=== PATIENT | female | born 1950 | race Hispanic/Latino ===

== ENCOUNTER 2022-03-28 03:46 | Inpatient (IN) | payer MEDICARE, OTHER ==
[~2022-03-28] VITALS: Ht 157.5 cm; Wt 68.0 kg
[2022-03-28 04:19] LABS: BASOPHILS % 0.3 % (0.0-1.0); EOSINOPHILS # (AUTO) 0.2 (0.0-0.4); EOSINOPHILS % 1.6 % (0.0-6.0); HEMATOCRIT 31.7 % (34.2-44.1); HEMOGLOBIN 10.1 g/dL (12.0-16.0); LYMPHOCYTES % 18.9 % (18.0-39.1); MEAN CORPUSCULAR HEMOGLOBIN 29.9 pg (28-32); MEAN CORPUSCULAR HGB CONC 31.9 g/dL (31-35); MEAN CORPUSCULAR VOLUME 93.8 fL (81-99); MONOCYTES # (AUTO) 0.7 (0.2-0.8); MONOCYTES % 6.2 % (4.4-11.3); NEUTROPHILS # (AUTO) 7.6 (2.1-6.9); NEUTROPHILS % 71.8 % (38.7-80.0); PLATELET COUNT 179 x10e3/uL (140-360); RED BLOOD COUNT 3.38 x10e6/uL (3.6-5.1); RED CELL DISTRIBUTION WIDTH 14.3 % (11.7-14.4)
[2022-03-28 04:38] LABS: ALBUMIN 2.9 g/dL (3.5-5.0); ALBUMIN/GLOBULIN RATIO 0.5 (0.8-2.0); ANION GAP 22.2 mmol/L (8-16); CALCIUM 8.9 mg/dL (8.4-10.2); CREATININE, SERUM 5.84 mg/dL (0.57-1.11); POTASSIUM 4.2 mmol/L (3.5-5.1)
[2022-03-28] MEDS ORDERED: SODIUM CHLORIDE FLUSH 10 ML SYR INJ PRN (05:45)
[2022-03-28] MEDS ORDERED: LEVOFLOXACIN 750MG/D5W 150ML 150 ML IV ONE (06:30)
[2022-03-28] MEDS ORDERED: BENZONATATE 100 MG CAP PO PRN (08:30)
[2022-03-28] MEDS ORDERED: ALBUTEROL/IPRATROPIUM 3 ML NEB NEB PRN (08:30)
[2022-03-28] MEDS: METHYLPREDNISOLONE SOD SUCC 40 MG/ML VIAL 1ML IV SCH ×2 (09:10→21:38)
[2022-03-28] MEDS: BENZONATATE 100 MG CAP PO SCH ×3 (09:10→21:38)
[2022-03-28] MEDS: ALBUTEROL/IPRATROPIUM 3 ML NEB NEB SCH ×2 (10:20→19:40)
[2022-03-28 12:15] VITALS: BP 157/71
[2022-03-28 12:20] VITALS: BP 157/71
[2022-03-28] MEDS ORDERED: SODIUM CHLORIDE 0.9% 1000ML 0 ML ONE (14:15)
[2022-03-28 16:03] VITALS: BP 153/80
[2022-03-28 20:00] VITALS: BP 171/69
[2022-03-28 21:36] VITALS: BP 171/69
[2022-03-29] VITALS (7 sets, daily range): BP systolic 104–181; BP diastolic 66–100
[2022-03-29] MEDS: ALBUTEROL/IPRATROPIUM 3 ML NEB NEB SCH ×4 (00:40→19:00)
[2022-03-29] MEDS: ACETAMINOPHEN 325 MG TAB PO PRN ×2 (02:47→11:36)
[2022-03-29 05:33] LABS: BASOPHILS # (AUTO) 0.1 (0.0-0.1); BASOPHILS % 0.4 % (0.0-1.0); HEMATOCRIT 33.2 % (34.2-44.1); HEMOGLOBIN 10.3 g/dL (12.0-16.0); LYMPHOCYTES # (AUTO) 0.5 (1.0-3.2); LYMPHOCYTES % 3.9 % (18.0-39.1); MEAN CORPUSCULAR HEMOGLOBIN 29.9 pg (28-32); MEAN CORPUSCULAR VOLUME 96.5 fL (81-99); MONOCYTES # (AUTO) 0.3 (0.2-0.8); MONOCYTES % 1.9 % (4.4-11.3); NEUTROPHILS # (AUTO) 11.9 (2.1-6.9); NEUTROPHILS % 91.7 % (38.7-80.0); PLATELET COUNT 243 x10e3/uL (140-360); RED BLOOD COUNT 3.44 x10e6/uL (3.6-5.1); RED CELL DISTRIBUTION WIDTH 14.2 % (11.7-14.4)
[2022-03-29 06:12] LABS: ALBUMIN/GLOBULIN RATIO 0.6 (0.8-2.0); ANION GAP 19.5 mmol/L (8-16); CALCIUM 9.5 mg/dL (8.4-10.2); CREATININE, SERUM 4.13 mg/dL (0.57-1.11); POTASSIUM 4.5 mmol/L (3.5-5.1)
[2022-03-29] MEDS: MAGNESIUM HYDROXIDE 30 ML UDC PO PRN (09:42)
[2022-03-29] MEDS ORDERED: SODIUM CHLORIDE 0.9% 250ML 250 ML ONE (09:53)
[2022-03-29] MEDS: METHYLPREDNISOLONE SOD SUCC 40 MG/ML VIAL 1ML IV SCH ×2 (10:07→21:00)
[2022-03-29] MEDS: BENZONATATE 100 MG CAP PO SCH ×3 (10:07→21:00)
[2022-03-29] MEDS: ONDANSETRON HCL INJ 2MG/ML 2ML 2 MG/ML VIAL IV PRN ×2 (10:30→18:25)
[2022-03-29] MEDS: METOCLOPRAMIDE HCL 10 MG/2ML VIAL IV PRN (12:57)
[2022-03-29] MEDS ORDERED: Morphine 2mg Syringe 2 MG/ML SYR IV ONE (14:45)
[2022-03-29] MEDS ORDERED: MAGNESIUM/ALUMINUM/SIMETHICONE 30 ML UDC PO ONE (14:45)
[2022-03-29] MEDS: FAMOTIDINE 20 MG TAB PO SCH (16:46)
[2022-03-29] MEDS: HYDROMORPHONE 1MG/1ML INJ IV PRN (18:25)
[2022-03-30] VITALS (8 sets, daily range): BP systolic 114–202; BP diastolic 69–100
[2022-03-30] MEDS: ONDANSETRON HCL INJ 2MG/ML 2ML 2 MG/ML VIAL IV PRN (00:41)
[2022-03-30] MEDS: HYDROMORPHONE 1MG/1ML INJ IV PRN ×2 (00:41→07:44)
[2022-03-30] MEDS: ALBUTEROL/IPRATROPIUM 3 ML NEB NEB SCH ×4 (01:00→19:22)
[2022-03-30] MEDS ORDERED: NIFEDIPINE CR 30 MG TAB PO ONE (07:30)
[2022-03-30] MEDS: METOCLOPRAMIDE HCL 10 MG/2ML VIAL IV PRN (07:44)
[2022-03-30] MEDS: FAMOTIDINE 20 MG TAB PO SCH (08:39)
[2022-03-30] MEDS: BENZONATATE 100 MG CAP PO SCH ×3 (08:40→20:36)
[2022-03-30] MEDS: METHYLPREDNISOLONE SOD SUCC 40 MG/ML VIAL 1ML IV SCH ×2 (08:40→20:36)
[2022-03-30] MEDS ORDERED: LEVOFLOXACIN 500MG/D5W 100ML 100 ML IV SCH (09:00)
[2022-03-30] MEDS ORDERED: Morphine 4mg INJECTION 4 MG/ML INJ IV PRN (09:30)
[2022-03-30] MEDS ORDERED: PROMETHAZINE 12.5MG/ NACL 0.9% 12.5 MG/50 ML BAG IV ONE (10:00)
[2022-03-30] MEDS: METOPROLOL TARTRATE 50 MG TAB PO SCH ×2 (11:10→17:39)
[2022-03-30] MEDS: FAMOTIDINE 20 MG/2 ML VIAL IV SCH ×2 (11:10→17:38)
[2022-03-30] MEDS: NIFEDIPINE CR 30 MG TAB PO SCH ×2 (11:10→17:39)
[2022-03-30] MEDS: METOCLOPRAMIDE HCL 10 MG/2ML VIAL IV SCH ×3 (11:19→20:36)
[2022-03-30] MEDS ORDERED: PROMETHAZINE 12.5MG/ NACL 0.9% 12.5 MG/50 ML BAG IV PRN (14:00)
[2022-03-31] VITALS (8 sets, daily range): BP systolic 139–188; BP diastolic 73–125
[2022-03-31] MEDS: HYDRALAZINE HCL 20 MG/ML VIAL IV PRN (00:58)
[2022-03-31] MEDS: ALBUTEROL/IPRATROPIUM 3 ML NEB NEB SCH ×4 (01:30→19:17)
[2022-03-31] MEDS: METOCLOPRAMIDE HCL 10 MG/2ML VIAL IV SCH ×4 (07:30→20:53)
[2022-03-31] MEDS ORDERED: SODIUM CHLORIDE 0.9% 1000ML 2,000 ML ONE (08:19)
[2022-03-31 09:03] LABS: ANION GAP 24.7 mmol/L (8-16); CALCIUM 9.2 mg/dL (8.4-10.2); CREATININE, SERUM 7.82 mg/dL (0.57-1.11); POTASSIUM 4.7 mmol/L (3.5-5.1)
[2022-03-31] MEDS ORDERED: KETOROLAC TROMETHAMINE 30 MG/ML VIAL IV STA (11:40)
[2022-03-31] MEDS: FAMOTIDINE 20 MG/2 ML VIAL IV SCH ×2 (13:19→17:00)
[2022-03-31] MEDS: BENZONATATE 100 MG CAP PO SCH ×3 (13:19→20:53)
[2022-03-31] MEDS: MAGNESIUM HYDROXIDE 30 ML UDC PO PRN (13:20)
[2022-03-31] MEDS: NIFEDIPINE CR 30 MG TAB PO SCH ×2 (13:20→17:00)
[2022-03-31] MEDS: METOPROLOL TARTRATE 50 MG TAB PO SCH ×2 (13:20→17:00)
[2022-03-31] MEDS ORDERED: SODIUM CHLORIDE 0.9% 250ML 250 ML ONE (13:25)
[2022-04-01] VITALS (7 sets, daily range): BP systolic 127–159; BP diastolic 68–90
[2022-04-01] MEDS: ALBUTEROL/IPRATROPIUM 3 ML NEB NEB SCH ×4 (01:00→20:55)
[2022-04-01] MEDS ORDERED: METHYLPREDNISOLONE SOD SUCC 40 MG/ML VIAL 1ML IV SCH (07:30)
[2022-04-01] MEDS ORDERED: MAGNESIUM HYDROXIDE 30 ML UDC PO ONE (10:00)
[2022-04-01] MEDS ORDERED: PANTOPRAZOLE SOD 40 MG TABEC PO ONE (10:00)
[2022-04-01] MEDS: BENZONATATE 100 MG CAP PO SCH ×3 (10:26→21:21)
[2022-04-01] MEDS: NIFEDIPINE CR 30 MG TAB PO SCH ×2 (10:48→17:19)
[2022-04-01] MEDS: METOPROLOL TARTRATE 50 MG TAB PO SCH ×2 (10:48→17:19)
[2022-04-01] MEDS: LACTULOSE SYRUP 20 GM/30 ML UDC PO PRN (15:16)
[2022-04-01] MEDS: HYDROCODONE/APAP 5MG-325MG TAB PO PRN (20:30)
[2022-04-01] MEDS: QUETIAPINE FUMARATE 25 MG TAB PO PRN (22:34)
[2022-04-02] VITALS (7 sets, daily range): BP systolic 111–152; BP diastolic 57–70
[2022-04-02] MEDS: ALBUTEROL/IPRATROPIUM 3 ML NEB NEB SCH ×4 (02:25→19:00)
[2022-04-02 05:01] LABS: BASOPHILS # (AUTO) 0.1 (0.0-0.1); BASOPHILS % 0.3 % (0.0-1.0); EOSINOPHILS # (AUTO) 0.1 (0.0-0.4); EOSINOPHILS % 0.3 % (0.0-6.0); HEMATOCRIT 29.7 % (34.2-44.1); HEMOGLOBIN 9.2 g/dL (12.0-16.0); LYMPHOCYTES # (AUTO) 1.1 (1.0-3.2); LYMPHOCYTES % 4.4 % (18.0-39.1); MEAN CORPUSCULAR VOLUME 96.7 fL (81-99); MONOCYTES # (AUTO) 0.6 (0.2-0.8); MONOCYTES % 2.4 % (4.4-11.3); NEUTROPHILS # (AUTO) 22.1 (2.1-6.9); NEUTROPHILS % 91.5 % (38.7-80.0); PLATELET COUNT 166 x10e3/uL (140-360); RED BLOOD COUNT 3.07 x10e6/uL (3.6-5.1); RED CELL DISTRIBUTION WIDTH 14.8 % (11.7-14.4)
[2022-04-02 05:29] LABS: ANION GAP 18.7 mmol/L (8-16); CALCIUM 8.6 mg/dL (8.4-10.2); CREATININE, SERUM 6.14 mg/dL (0.57-1.11); POTASSIUM 4.7 mmol/L (3.5-5.1)
[2022-04-02] MEDS: NIFEDIPINE CR 30 MG TAB PO SCH ×2 (09:00→17:00)
[2022-04-02] MEDS: METOPROLOL TARTRATE 50 MG TAB PO SCH ×2 (09:00→17:00)
[2022-04-02] MEDS: BENZONATATE 100 MG CAP PO SCH ×3 (09:07→20:17)
[2022-04-02] MEDS: PANTOPRAZOLE SOD 40 MG TABEC PO SCH (09:07)
[2022-04-02] MEDS ORDERED: GENTAMICIN 120MG/NS 100ML 100 ML IV ONE (13:30)
[2022-04-02] MEDS ORDERED: SODIUM CHLORIDE 0.9% 250ML 250 ML ONE (14:40)
[2022-04-02] MEDS ORDERED: SODIUM CHLORIDE 0.9% 1000ML 1,000 ML ONE (15:43)
[2022-04-02] MEDS: HYDROCODONE/APAP 5MG-325MG TAB PO PRN (18:28)
[2022-04-02] MEDS: QUETIAPINE FUMARATE 25 MG TAB PO PRN (20:19)
[2022-04-03] VITALS (8 sets, daily range): BP systolic 109–142; BP diastolic 58–92
[2022-04-03] MEDS: ALBUTEROL/IPRATROPIUM 3 ML NEB NEB SCH ×4 (01:40→19:32)
[2022-04-03 06:39] LABS: ALBUMIN 2.7 g/dL (3.5-5.0); ALBUMIN/GLOBULIN RATIO 0.7 (0.8-2.0); ANION GAP 16.4 mmol/L (8-16); CALCIUM 8.4 mg/dL (8.4-10.2); CREATININE, SERUM 3.66 mg/dL (0.57-1.11); POTASSIUM 4.4 mmol/L (3.5-5.1)
[2022-04-03] MEDS: BENZONATATE 100 MG CAP PO SCH ×3 (08:17→20:29)
[2022-04-03] MEDS: PANTOPRAZOLE SOD 40 MG TABEC PO SCH (08:17)
[2022-04-03] MEDS: METOPROLOL TARTRATE 50 MG TAB PO SCH ×2 (08:17→17:00)
[2022-04-03] MEDS: NIFEDIPINE CR 30 MG TAB PO SCH ×2 (08:18→17:00)
[2022-04-03] MEDS: HYDROCODONE/APAP 5MG-325MG TAB PO PRN (14:16)
[2022-04-04] VITALS: BP 139/68
[2022-04-04] MEDS: ALBUTEROL/IPRATROPIUM 3 ML NEB NEB SCH ×4 (00:40→19:40)
[2022-04-04 05:50] LABS: BASOPHILS % 0.4 % (0.0-1.0); EOSINOPHILS # (AUTO) 0.3 (0.0-0.4); EOSINOPHILS % 2.8 % (0.0-6.0); HEMATOCRIT 26.4 % (34.2-44.1); LYMPHOCYTES % 8.8 % (18.0-39.1); MEAN CORPUSCULAR HEMOGLOBIN 30.1 pg (28-32); MEAN CORPUSCULAR HGB CONC 30.3 g/dL (31-35); MEAN CORPUSCULAR VOLUME 99.2 fL (81-99); MONOCYTES # (AUTO) 0.7 (0.2-0.8); MONOCYTES % 5.8 % (4.4-11.3); NEUTROPHILS # (AUTO) 9.2 (2.1-6.9); NEUTROPHILS % 80.9 % (38.7-80.0); PLATELET COUNT 217 x10e3/uL (140-360); RED BLOOD COUNT 2.66 x10e6/uL (3.6-5.1)
[2022-04-04 06:20] LABS: CALCIUM 8.3 mg/dL (8.4-10.2); CREATININE, SERUM 5.27 mg/dL (0.57-1.11)
[2022-04-04] MEDS: PANTOPRAZOLE SOD 40 MG TABEC PO SCH (07:30)
[2022-04-04 07:45] VITALS: BP 150/119
[2022-04-04 07:51] VITALS: BP 150/119
[2022-04-04] MEDS ORDERED: SODIUM CHLORIDE 0.9% 1000ML 2,000 ML ONE (08:11)
[2022-04-04] MEDS: NIFEDIPINE CR 30 MG TAB PO SCH ×2 (09:00→16:33)
[2022-04-04] MEDS: METOPROLOL TARTRATE 50 MG TAB PO SCH ×2 (09:00→16:33)
[2022-04-04] MEDS: BENZONATATE 100 MG CAP PO SCH ×3 (09:00→21:01)
[2022-04-04] MEDS: ACETAMINOPHEN 325 MG TAB PO PRN (11:50)
[2022-04-04 15:45] VITALS: BP 154/72
[2022-04-04 20:00] VITALS: BP 146/70
[2022-04-04 22:08] VITALS: BP 146/70
[2022-04-05] VITALS (8 sets, daily range): BP systolic 110–155; BP diastolic 47–73
[2022-04-05] MEDS: ALBUTEROL/IPRATROPIUM 3 ML NEB NEB SCH ×4 (01:40→20:05)
[2022-04-05] MEDS: NIFEDIPINE CR 30 MG TAB PO SCH ×2 (08:37→16:17)
[2022-04-05] MEDS: METOPROLOL TARTRATE 50 MG TAB PO SCH ×2 (08:37→16:17)
[2022-04-05] MEDS: PANTOPRAZOLE SOD 40 MG TABEC PO SCH (08:37)
[2022-04-05] MEDS: BENZONATATE 100 MG CAP PO SCH ×3 (08:37→20:29)
[2022-04-05] MEDS: HYDROCODONE/APAP 5MG-325MG TAB PO PRN ×3 (08:41→20:29)
[2022-04-06] VITALS (8 sets, daily range): BP systolic 115–148; BP diastolic 41–65
[2022-04-06] MEDS: ALBUTEROL/IPRATROPIUM 3 ML NEB NEB SCH ×4 (02:00→19:18)
[2022-04-06] MEDS: PANTOPRAZOLE SOD 40 MG TABEC PO SCH (08:25)
[2022-04-06] MEDS: BENZONATATE 100 MG CAP PO SCH ×3 (08:25→21:02)
[2022-04-06] MEDS: HYDROCODONE/APAP 5MG-325MG TAB PO PRN (08:25)
[2022-04-06] MEDS: NIFEDIPINE CR 30 MG TAB PO SCH ×2 (08:25→15:39)
[2022-04-06] MEDS: METOPROLOL TARTRATE 50 MG TAB PO SCH ×2 (08:26→15:39)
[2022-04-06] MEDS: MAGNESIUM HYDROXIDE 30 ML UDC PO PRN (11:22)
[2022-04-06] MEDS: ONDANSETRON HCL 4 MG ORAL DISINTEGRATING TAB PO PRN (11:40)
[2022-04-06] MEDS: ACETAMINOPHEN 325 MG TAB PO PRN ×2 (13:13→21:03)
[2022-04-06] MEDS: LACTULOSE SYRUP 20 GM/30 ML UDC PO PRN (13:14)
[2022-04-06] MEDS: POLYETHYLENE GLYCOL 3350 17 GM PACK PO PRN (15:40)
[2022-04-07] VITALS (7 sets, daily range): BP systolic 119–150; BP diastolic 52–76
[2022-04-07] MEDS: ALBUTEROL/IPRATROPIUM 3 ML NEB NEB SCH ×4 (07:00→19:35)
[2022-04-07] MEDS: PANTOPRAZOLE SOD 40 MG TABEC PO SCH (07:30)
[2022-04-07 08:46] LABS: CALCIUM 8.2 mg/dL (8.4-10.2); CREATININE, SERUM 6.92 mg/dL (0.57-1.11)
[2022-04-07] MEDS: METOPROLOL TARTRATE 50 MG TAB PO SCH ×3 (09:00→17:00)
[2022-04-07] MEDS: NIFEDIPINE CR 30 MG TAB PO SCH ×3 (09:00→17:00)
[2022-04-07] MEDS: BENZONATATE 100 MG CAP PO SCH ×3 (09:00→20:08)
[2022-04-07] MEDS ORDERED: EPINEPHRINE HCL 1:1000 1ML 1 MG/ML AMP ONE ×2 (09:09→13:00)
[2022-04-07] MEDS ORDERED: LIDOCAINE HCL 4% 50 ML BTL ONE (09:09)
[2022-04-07] MEDS ORDERED: SODIUM CHLORIDE 0.9% 250ML 250 ML IV ONE (09:15)
[2022-04-07 12:11] LABS: BASOPHILS % 0.4 % (0.0-1.0); EOSINOPHILS # (AUTO) 0.2 (0.0-0.4); EOSINOPHILS % 2.2 % (0.0-6.0); LYMPHOCYTES # (AUTO) 1.2 (1.0-3.2); MEAN CORPUSCULAR HEMOGLOBIN 30.8 pg (28-32); MEAN CORPUSCULAR HGB CONC 30.1 g/dL (31-35); MEAN CORPUSCULAR VOLUME 102.3 fL (81-99); MONOCYTES # (AUTO) 0.8 (0.2-0.8); MONOCYTES % 7.6 % (4.4-11.3); NEUTROPHILS # (AUTO) 7.8 (2.1-6.9); NEUTROPHILS % 76.5 % (38.7-80.0); PLATELET COUNT 266 x10e3/uL (140-360); RED BLOOD COUNT 2.21 x10e6/uL (3.6-5.1); RED CELL DISTRIBUTION WIDTH 15.9 % (11.7-14.4)
[2022-04-07 12:16] LABS: HEMATOCRIT 22.6 % (34.2-44.1); HEMOGLOBIN 6.8 g/dL (12.0-16.0)
[2022-04-07 12:17] LABS: BODY FLUID APPEARANCE SL.CLOUDY; BODY FLUID COLOR COLORLESS; RBC,BODY FLUID 0 cells/uL; WBC,BODY FLUID 115 cells/uL
[2022-04-07 12:22] LABS: BODY FLUID TYPE PERITONEAL
[2022-04-07 12:37] LABS: EOSINOPHILS,BODY FLUID 1 %; LYMPHOCYTES,BODY FLUID 4 %; MONO/MACROPHG,BODY FLUID 2 %; NEUTROPHILS,BODY FLUID 93 %
[2022-04-07] MEDS ORDERED: EPOETIN ALFA-EPBX 10,000 UNIT/ML VIAL SC ONE (12:45)
[2022-04-07] MEDS ORDERED: PROPOFOL IV EMULSION 10 MG/ML 20 ML VIAL ONE (13:00)
[2022-04-07] MEDS ORDERED: LIDOCAINE HCL 2% LOCAL INJ 5 ML SDV VIAL INJ ONE (13:00)
[2022-04-07] MEDS ORDERED: POVIDONE IODINE 0.05% 0.05 % ML PO ONE (13:00)
[2022-04-07] MEDS ORDERED: ONDANSETRON HCL INJ 2MG/ML 2ML 2 MG/ML VIAL ONE (13:00)
[2022-04-07] MEDS ORDERED: MIDAZOLAM HCL 2 MG/2 ML VIAL ONE (13:12)
[2022-04-07] MEDS ORDERED: FENTANYL CITRATE/PF 100MCG/2 ML INJ ONE (13:12)
[2022-04-07] MEDS ORDERED: SODIUM CHLORIDE 0.9% 1000ML 2,000 ML ONE (13:48)
[2022-04-07] MEDS: ACETAMINOPHEN 325 MG TAB PO PRN (16:55)
[2022-04-07] MEDS: IRON SUCROSE 100 MG in SODIUM CHLORIDE 0.9% 100 ML IV SCH (16:58)
[2022-04-07] MEDS ORDERED: EPOETIN ALFA-EPBX 10,000 UNIT/ML VIAL ONE ×2 (17:15→17:18)
[2022-04-08] VITALS (7 sets, daily range): BP systolic 138–187; BP diastolic 52–73
[2022-04-08] MEDS: ACETAMINOPHEN 325 MG TAB PO PRN (00:26)
[2022-04-08] MEDS: ALBUTEROL/IPRATROPIUM 3 ML NEB NEB SCH ×5 (00:30→19:53)
[2022-04-08] MEDS ORDERED: DICLOFENAC SOD 1% GEL 100 GM TUBE TP PRN (10:00)
[2022-04-08] MEDS: PANTOPRAZOLE SOD 40 MG TABEC PO SCH (10:05)
[2022-04-08] MEDS: NIFEDIPINE CR 30 MG TAB PO SCH ×2 (10:06→17:34)
[2022-04-08] MEDS: BENZONATATE 100 MG CAP PO SCH ×3 (10:06→20:01)
[2022-04-08] MEDS: METOPROLOL TARTRATE 50 MG TAB PO SCH ×2 (10:07→17:33)
[2022-04-08 10:23] LABS: BASOPHILS % 0.4 % (0.0-1.0); EOSINOPHILS # (AUTO) 0.1 (0.0-0.4); EOSINOPHILS % 1.7 % (0.0-6.0); LYMPHOCYTES # (AUTO) 0.7 (1.0-3.2); LYMPHOCYTES % 13.1 % (18.0-39.1); MEAN CORPUSCULAR HEMOGLOBIN 30.6 pg (28-32); MEAN CORPUSCULAR HGB CONC 30.2 g/dL (31-35); MEAN CORPUSCULAR VOLUME 101.4 fL (81-99); MONOCYTES # (AUTO) 0.5 (0.2-0.8); MONOCYTES % 8.8 % (4.4-11.3); NEUTROPHILS # (AUTO) 3.9 (2.1-6.9); NEUTROPHILS % 72.1 % (38.7-80.0); PLATELET COUNT 224 x10e3/uL (140-360); RED BLOOD COUNT 2.19 x10e6/uL (3.6-5.1); RED CELL DISTRIBUTION WIDTH 16.2 % (11.7-14.4)
[2022-04-08 10:38] LABS: HEMATOCRIT 22.2 % (34.2-44.1); HEMOGLOBIN 6.7 g/dL (12.0-16.0)
[2022-04-08] MEDS: IRON SUCROSE 100 MG in SODIUM CHLORIDE 0.9% 100 ML IV SCH (14:33)
[2022-04-09] VITALS (7 sets, daily range): BP systolic 135–161; BP diastolic 52–91
[2022-04-09] MEDS: ALBUTEROL/IPRATROPIUM 3 ML NEB NEB SCH ×4 (00:55→20:18)
[2022-04-09] MEDS: PANTOPRAZOLE SOD 40 MG TABEC PO SCH (07:30)
[2022-04-09] MEDS: BENZONATATE 100 MG CAP PO SCH ×3 (09:00→20:07)
[2022-04-09] MEDS: NIFEDIPINE CR 30 MG TAB PO SCH ×2 (09:00→16:32)
[2022-04-09] MEDS: METOPROLOL TARTRATE 50 MG TAB PO SCH ×2 (09:00→16:32)
[2022-04-09] MEDS ORDERED: SODIUM CHLORIDE 0.9% 1000ML 2,000 ML ONE (09:10)
[2022-04-09] MEDS: ACETAMINOPHEN 325 MG TAB PO PRN ×2 (09:35→20:08)
[2022-04-09] MEDS: IRON SUCROSE 100 MG in SODIUM CHLORIDE 0.9% 100 ML IV SCH (14:08)
[2022-04-10] VITALS (8 sets, daily range): BP systolic 138–168; BP diastolic 61–82
[2022-04-10] MEDS: ALBUTEROL/IPRATROPIUM 3 ML NEB NEB SCH ×2 (01:50→06:40)
[2022-04-10] MEDS: NIFEDIPINE CR 30 MG TAB PO SCH ×2 (08:41→16:08)
[2022-04-10] MEDS: BENZONATATE 100 MG CAP PO SCH ×3 (08:41→19:48)
[2022-04-10] MEDS: PANTOPRAZOLE SOD 40 MG TABEC PO SCH (08:41)
[2022-04-10] MEDS: METOPROLOL TARTRATE 50 MG TAB PO SCH ×2 (08:42→16:09)
[2022-04-10] MEDS ORDERED: EPOETIN ALFA-EPBX 10,000 UNIT/ML VIAL SC ONE (09:30)
[2022-04-10] MEDS: ACETAMINOPHEN 325 MG TAB PO PRN ×2 (11:52→19:49)
[2022-04-10] MEDS: IPRATROPIUM BROMIDE 0.02% 2.5 ML NEB NEB SCH ×2 (12:45→19:35)
[2022-04-10] MEDS: ALBUTEROL SULF 0.083% NEB SOLN 3 ML NEB NEB SCH ×2 (12:45→19:35)
[2022-04-10] MEDS ORDERED: IPRATROPIUM BROMIDE 0.02% 2.5 ML NEB NEB SCH (13:00)
[2022-04-10] MEDS: IRON SUCROSE 100 MG in SODIUM CHLORIDE 0.9% 100 ML IV SCH (13:59)
[2022-04-11] VITALS (8 sets, daily range): BP systolic 128–190; BP diastolic 47–75
[2022-04-11] MEDS: ALBUTEROL SULF 0.083% NEB SOLN 3 ML NEB NEB SCH ×4 (01:46→19:20)
[2022-04-11] MEDS: IPRATROPIUM BROMIDE 0.02% 2.5 ML NEB NEB SCH ×4 (01:46→19:20)
[2022-04-11] MEDS: PANTOPRAZOLE SOD 40 MG TABEC PO SCH (07:30)
[2022-04-11] MEDS ORDERED: SODIUM CHLORIDE 0.9% 1000ML 2,000 ML ONE (08:11)
[2022-04-11] MEDS: NIFEDIPINE CR 30 MG TAB PO SCH ×2 (09:00→16:49)
[2022-04-11] MEDS: METOPROLOL TARTRATE 50 MG TAB PO SCH ×2 (09:00→16:50)
[2022-04-11] MEDS: BENZONATATE 100 MG CAP PO SCH ×3 (09:00→20:23)
[2022-04-11] MEDS: ACETAMINOPHEN 325 MG TAB PO PRN ×3 (10:12→20:23)
[2022-04-11] MEDS: IRON SUCROSE 100 MG in SODIUM CHLORIDE 0.9% 100 ML IV SCH (14:03)
[2022-04-11] MEDS: METHYLPREDNISOLONE SOD SUCC 1,000 MG in SODIUM CHLORIDE 0.9% 250ML 250 ML IV SCH (14:03)
[2022-04-12] VITALS (7 sets, daily range): BP systolic 145–186; BP diastolic 47–93
[2022-04-12] MEDS: ALBUTEROL SULF 0.083% NEB SOLN 3 ML NEB NEB SCH ×4 (01:45→19:20)
[2022-04-12] MEDS: IPRATROPIUM BROMIDE 0.02% 2.5 ML NEB NEB SCH ×4 (01:45→19:20)
[2022-04-12] MEDS: ACETAMINOPHEN 325 MG TAB PO PRN ×2 (05:34→20:15)
[2022-04-12] MEDS ORDERED: METHYLPREDNISOLONE SOD SUCC 1,000 MG/8 ML VIAL IV SCH (09:00)
[2022-04-12] MEDS: METHYLPREDNISOLONE SOD SUCC 1,000 MG in SODIUM CHLORIDE 0.9% 250ML 250 ML IV SCH (09:42)
[2022-04-12] MEDS: NIFEDIPINE CR 30 MG TAB PO SCH ×2 (09:43→16:52)
[2022-04-12] MEDS: PANTOPRAZOLE SOD 40 MG TABEC PO SCH (09:43)
[2022-04-12] MEDS: BENZONATATE 100 MG CAP PO SCH ×3 (09:44→20:15)
[2022-04-12] MEDS: METOPROLOL TARTRATE 50 MG TAB PO SCH ×2 (09:44→16:52)
[2022-04-12] MEDS: TRAMADOL/APAP 37.5MG-325MG TAB PO PRN ×2 (10:13→16:53)
[2022-04-12] MEDS: ONDANSETRON HCL 4 MG ORAL DISINTEGRATING TAB PO PRN (17:38)
[2022-04-12] MEDS: QUETIAPINE FUMARATE 25 MG TAB PO PRN (20:14)
[2022-04-13] VITALS (7 sets, daily range): BP systolic 155–188; BP diastolic 61–99
[2022-04-13] MEDS: ALBUTEROL SULF 0.083% NEB SOLN 3 ML NEB NEB SCH ×4 (01:10→19:20)
[2022-04-13] MEDS: IPRATROPIUM BROMIDE 0.02% 2.5 ML NEB NEB SCH ×4 (01:10→19:20)
[2022-04-13 07:40] LABS: ANION GAP 15.1 mmol/L (8-16); CALCIUM 8.4 mg/dL (8.4-10.2); CREATININE, SERUM 5.45 mg/dL (0.57-1.11); POTASSIUM 5.1 mmol/L (3.5-5.1)
[2022-04-13] MEDS: METHYLPREDNISOLONE SOD SUCC 1,000 MG in SODIUM CHLORIDE 0.9% 250ML 250 ML IV SCH (09:33)
[2022-04-13] MEDS: PANTOPRAZOLE SOD 40 MG TABEC PO SCH (09:34)
[2022-04-13] MEDS: BENZONATATE 100 MG CAP PO SCH ×3 (09:35→21:29)
[2022-04-13] MEDS: NIFEDIPINE CR 30 MG TAB PO SCH ×2 (09:35→16:55)
[2022-04-13] MEDS: METOPROLOL TARTRATE 50 MG TAB PO SCH ×2 (09:36→16:56)
[2022-04-13] MEDS: ACETAMINOPHEN 325 MG TAB PO PRN (09:40)
[2022-04-13] MEDS: ALBUTEROL SULF 0.083% NEB SOLN 3 ML NEB NEB PRN ×2 (17:00→23:48)
[2022-04-13] MEDS: IPRATROPIUM BROMIDE 0.02% 2.5 ML NEB NEB PRN ×2 (17:00→23:47)
[2022-04-13] MEDS: METOPROLOL TARTRATE INJ 1 MG/ML VIAL IV PRN (19:24)
[2022-04-13] MEDS: POLYETHYLENE GLYCOL 3350 17 GM PACK PO PRN (21:29)
[2022-04-14] VITALS (8 sets, daily range): BP systolic 156–199; BP diastolic 60–104
[2022-04-14] MEDS: QUETIAPINE FUMARATE 25 MG TAB PO PRN (00:25)
[2022-04-14] MEDS: METOPROLOL TARTRATE INJ 1 MG/ML VIAL IV PRN (00:26)
[2022-04-14] MEDS: ALBUTEROL SULF 0.083% NEB SOLN 3 ML NEB NEB SCH ×4 (04:15→19:25)
[2022-04-14] MEDS: IPRATROPIUM BROMIDE 0.02% 2.5 ML NEB NEB SCH ×4 (04:15→19:25)
[2022-04-14] MEDS: HYDRALAZINE HCL 20 MG/ML VIAL IV PRN ×2 (06:18→18:38)
[2022-04-14] MEDS: BENZONATATE 100 MG CAP PO SCH ×3 (08:39→21:43)
[2022-04-14] MEDS: PANTOPRAZOLE SOD 40 MG TABEC PO SCH (08:39)
[2022-04-14] MEDS: METHYLPREDNISOLONE SOD SUCC 1,000 MG in SODIUM CHLORIDE 0.9% 250ML 250 ML IV SCH (08:40)
[2022-04-14] MEDS: NIFEDIPINE CR 30 MG TAB PO SCH ×2 (09:00→16:58)
[2022-04-14] MEDS: METOPROLOL TARTRATE 50 MG TAB PO SCH ×2 (09:00→16:59)
[2022-04-14] MEDS ORDERED: SODIUM CHLORIDE 0.9% 1000ML 2,000 ML ONE (10:17)
[2022-04-14] MEDS ORDERED: HEPARIN SOD (PORCINE) 1000 UNIT/ML SDV IV PRN (10:45)
[2022-04-14] MEDS ORDERED: SODIUM CHLORIDE 0.9% 1000ML 2,000 ML IV PRN (10:45)
[2022-04-15] VITALS: BP 159/51
[2022-04-15] MEDS: ALBUTEROL SULF 0.083% NEB SOLN 3 ML NEB NEB SCH ×3 (00:42→13:00)
[2022-04-15] MEDS: IPRATROPIUM BROMIDE 0.02% 2.5 ML NEB NEB SCH ×3 (00:42→13:00)
[2022-04-15] MEDS: LACTULOSE SYRUP 20 GM/30 ML UDC PO PRN (02:07)
[2022-04-15 04:00] VITALS: BP 156/64
[2022-04-15 05:27] LABS: LYMPHOCYTES # (AUTO) 0.4 (1.0-3.2); LYMPHOCYTES % 5.1 % (18.0-39.1); MEAN CORPUSCULAR HEMOGLOBIN 30.8 pg (28-32); MEAN CORPUSCULAR HGB CONC 29.4 g/dL (31-35); MEAN CORPUSCULAR VOLUME 104.9 fL (81-99); MONOCYTES # (AUTO) 0.5 (0.2-0.8); MONOCYTES % 6.7 % (4.4-11.3); NEUTROPHILS # (AUTO) 6.4 (2.1-6.9); NEUTROPHILS % 87.1 % (38.7-80.0); PLATELET COUNT 226 x10e3/uL (140-360); RED BLOOD COUNT 1.85 x10e6/uL (3.6-5.1); RED CELL DISTRIBUTION WIDTH 19.7 % (11.7-14.4)
[2022-04-15 05:35] LABS: HEMATOCRIT 19.4 % (34.2-44.1); HEMOGLOBIN 5.7 g/dL (12.0-16.0)
[2022-04-15 06:50] LABS: ALBUMIN/GLOBULIN RATIO 1.1 (0.8-2.0); ANION GAP 16.3 mmol/L (8-16); CALCIUM 8.5 mg/dL (8.4-10.2); CREATININE, SERUM 4.1 mg/dL (0.57-1.11); POTASSIUM 4.3 mmol/L (3.5-5.1)
[2022-04-15 08:44] LABS: ANISOCYTOSIS MODERATE; HYPOCHROMASIA SLIGHT; PLATELET ESTIMATE ADEQUATE; PLATELET MORPHOLOGY COMMENT NORMAL; RBC MORPHOLOGY COMMENT ABNORMAL
[2022-04-15] MEDS: METHYLPREDNISOLONE SOD SUCC 1,000 MG in SODIUM CHLORIDE 0.9% 250ML 250 ML IV SCH ×2 (09:00→09:55)
[2022-04-15 09:09] VITALS: BP 172/63
[2022-04-15] MEDS: NIFEDIPINE CR 30 MG TAB PO SCH ×2 (09:39→17:17)
[2022-04-15] MEDS: PANTOPRAZOLE SOD 40 MG TABEC PO SCH (09:39)
[2022-04-15] MEDS: METOPROLOL TARTRATE 50 MG TAB PO SCH ×2 (09:40→17:17)
[2022-04-15] MEDS: BENZONATATE 100 MG CAP PO SCH ×2 (09:49→14:14)
[2022-04-15] MEDS: SUCRALFATE 1 GM TAB PO SCH ×2 (09:49→17:17)
[2022-04-15] MEDS: HYDRALAZINE HCL 20 MG/ML VIAL IV PRN ×2 (09:57→17:17)
[2022-04-15 11:45] VITALS: BP 161/57
== END 2022-04-15 17:18 | disposition home or self-care (01) | DRG 299 ==
LOC: ER 03:55 → ERHOLD 05:34 → MED/SURG2 11:49 → OBSVTOIN 03-29 11:44 → MED/SURG2 04-01 19:42
PROVIDERS: ADMIT Internal Medicine; ATTEND Internal Medicine
PROC: 5A1D70Z Performance of Urinary Filtration, Intermittent, Less than 6 Hours Per Day (ICD-10-PCS; 2022-03-28)
PROC: 0B9F8ZX Drainage of Right Lower Lung Lobe, Via Natural or Artificial Opening Endoscopic, Diagnostic (ICD-10-PCS; principal; 2022-04-07 09:09)
DX: I77.82 Antineutrophilic cytoplasmic antibody [ANCA] vasculitis (principal); G92.9 Unspecified toxic encephalopathy; J18.9 Pneumonia, unspecified organism; N18.6 End stage renal disease; J96.01 Acute respiratory failure with hypoxia; I12.0 Hypertensive chronic kidney disease with stage 5 chronic kidney disease or end stage renal disease; J44.1 Chronic obstructive pulmonary disease with (acute) exacerbation; N25.81 Secondary hyperparathyroidism of renal origin; N17.9 Acute kidney failure, unspecified; Z20.822 Contact with and (suspected) exposure to COVID-19; E11.22 Type 2 diabetes mellitus with diabetic chronic kidney disease; K21.9 Gastro-esophageal reflux disease without esophagitis; E11.51 Type 2 diabetes mellitus with diabetic peripheral angiopathy without gangrene; I25.10 Atherosclerotic heart disease of native coronary artery without angina pectoris; N21.0 Calculus in bladder; D63.1 Anemia in chronic kidney disease; N83.201 Unspecified ovarian cyst, right side; E11.40 Type 2 diabetes mellitus with diabetic neuropathy, unspecified; D72.829 Elevated white blood cell count, unspecified; T38.0X5A Adverse effect of glucocorticoids and synthetic analogues, initial encounter; E88.09 Other disorders of plasma-protein metabolism, not elsewhere classified; Z99.2 Dependence on renal dialysis; Z99.81 Dependence on supplemental oxygen; Z87.891 Personal history of nicotine dependence; Z90.49 Acquired absence of other specified parts of digestive tract
CPT/HCPCS: 31622; 36415; 71045; 71046; 71250; 74018; 74176; 76770; 80048; 80053; 82140; 82784; 82948; 83880; 84100; 84484; 85025; 86021; 86140; 86704; 86706; 87102; 87116; 87205; 87206; 87335; 87340; 87400; 88112; 88300; 88305; 88312; 89051; 93005; 93041; 94668; 94669; 94760; 94799; 96360; 99252; 99284; G0378; J0171; J0360; J0456; J0696; J1170; J1580; J1644; J1756; J1885; J2001; J2250; J2270; J2405; J2550; J2765; J2920; J2930; J3010; J7030; J7050; Q0162